=== PATIENT | male | born 1955 | race Caucasian/White ===

== ENCOUNTER 2024-09-17 19:11 | Emergency (ER) | payer MEDICARE, OTHER, SELFPAY ==
[2024-09-17 19:13] VITALS: BP 145/87; PULSE 99; RESP 18; TEMP 36.7; O2SAT 98; BMI 27.8
--- NOTE | 2024-09-17 19:31 | EDS_ITS ---
HPI HPI - GI History of Present Illness Chief Complaint: Foreign Body Informant: patient and spouse/S.O. Narrative Narrative: 69-year-old male presenting to the emergency room with possible esophageal foreign body. Patient states that he does not have any teeth. He was eating a hot dog when he felt the last bite get stuck in his upper chest. Since that time he has been spitting up secretions. This is not happened to him before but notes over the past couple weeks he has had more choking . PFSH PFSH Home Medications ?Medication ?Instructions ?Recorded ?Last Taken ?Type amlodipine 5 mg tablet mg DAILY 09/17/24 Unknown Hi story atorvastatin 40 mg tablet 40 mg PO QHS cholesterol 07/30 Unknown History empagliflozin 10 mg tablet 10 mg PO 09/17/24 Unknown H istory (Jardiance) glimepiride 4 mg tablet 4 mg PO 09/17/24 Unknown His tory lisinopril 20 mg tablet 20 mg PO DAILY 09/17/24 Unkn own History metformin 500 mg tablet 1,000 mg PO BID 09/17/24 Unk nown History sitagliptin phosphate 100 mg mg 09/17/24 Unknown Histo ry tablet (Januvia) tamsulosin 0.4 mg capsule 0.4 mg PO QHS 09/17/24 Unkno wn History Allergy/AdvReac Type Severity Reaction Status Date / Time No Known Allergies Allergy Verified 09/17/24 19:15 Social History Smoking Status: Never smoker ROS ROS ED Constitutional Constitutional ED: Denies chills or weight loss Eyes Eyes: Denies change in vision or diplopia ENT ENT ED: Denies ear pain, rhinorrhea or sore throat Cardiovascular Cardiovascular: Denies chest pain, orthopnea, palpitations or racing heartbeat Respiratory/Chest Respiratory/Chest: Denies cough, dyspnea or orthopnea Gastrointestinal Gastrointestinal: Reports vomiting and other Details: See history of present illness ; Denies abdominal pain, diarrhea or nausea Genitourinary Genitourinary ED: Denies dysuria, hematuria or urinary frequency Musculoskeletal Musculoskeletal: Denies arthralgias or myalgias Integumentary Denies abscess or rash Neurologic Neurologic: Denies headache(s) or weakness Psychiatric Psychiatric: Denies anxiety, depression, suicidal ideation or suicidal thoughts Endocrine Endocrinology: Denies polydipsia, polyphagia or polyuria Allergic/Immunologic Allergic/Immunologic ED: Denies mouth swelling, tongue swelling or urticaria EXAM Physical Exam Const Vital Signs: 09/17/24 19:13 09/17/24 19:28 Temperature 98.0 F Temperature Source Temporal Pulse Rate 99 Respiratory Rate 18 Respiratory Effort Normal Blood Pressure 145/87 H Blood Pressure Mean 106 Pulse Ox 98 Oxygen Delivery Method Room Air Positive well nourished and well developed General Appearance ED: well developed HEENT Reports normocephalic, head/scalp atraumatic and moist mucous membranes Eyes PERRL and EOMs intact bilaterally Neck no lymphadenopathy, supple and no JVD Resp normal respiratory effort and clear to auscultation bilaterally Cardio regular rate, regular rhythm and no murmurs GI normal to inspection, nondistended, normoactive bowel sounds and non-tender Palpation: soft Back/Spine no CVA tenderness and normal ROM Extremity normal to inspection General Extremety ED: Negative for edema General Extremity: Negative for edema Neuro oriented x3 and CN's II-XII intact bilaterally Sensorium / Orientation: alert Motor Exam: strength 5/5 throughout Psych mental status grossly normal Mood & Affect: Negative for depressed or tearful Skin no rashes or lesions noted and no wounds MDM MDM MDM Narrative Medical decision making narrative: Differential diagnosis includes but not limited to esophageal foreign body esophageal abrasion pharyngeal abrasion pharyngeal/laryngeal failure body esophageal stricture GERD Patient was given a Coke to drink. After several episodes of spitting up he was able to swallow it and now feels asymptomatic. Patient will be discharged home. Instructions to chew food well. Should he have recurrent symptoms recommend a formal EGD. He will be given a referral. History & Record Review Discussion w/independent historian: Patient and Significant other Discharge Plan Triage Chief Complaint: Foreign Body ED Provider: Nicolas Atkinson Dx/Rx/DC Orders Clinical Impression: Esophageal foreign body Instructions: ED Esophageal Foreign Body, Resolved Prescriptions: No Action atorvastatin 40 mg tablet 40 mg PO QHS metformin 500 mg tablet 1,000 mg PO BID lisinopril 20 mg tablet 20 mg PO DAILY amlodipine 5 mg tablet DAILY tamsulosin 0.4 mg capsule 0.4 mg PO QHS glimepiride 4 mg tablet 4 mg PO Januvia 100 mg tablet Patient Comments: [NO ORIGINAL SIG] Jardiance 10 mg tablet 10 mg PO Primary Care Provider: NOT,DEFINED Referrals: Wojciech Strong, DO [Med Staff - Active Staff] - As Needed (If you need to have a EGD performed) NOT,DEFINED [Primary Care Provider] - Activity Restrictions/Additional Instructions: If symptoms become recurrent you may wish to have a formal EGD performed to evaluate your esophagus. You may call the doctor listed here. Print Language: Irish Disposition Disposition: Home, Self Care
[2024-09-17 20:04] VITALS: BP 109/70; PULSE 96; RESP 16; TEMP 36.6; O2SAT 100
== END 2024-09-17 20:13 | disposition home or self-care (01) ==
LOC: ED 20:07
PROVIDERS: Emergency Provider Emergency Medicine; PCP Family Medicine; Referring Provider Emergency Medicine; Visit Provider Emergency Medicine
DX: T18.128A Food in esophagus causing other injury, initial encounter (principal); Z79.899 Other long term (current) drug therapy; Z79.84 Long term (current) use of oral hypoglycemic drugs; W44.F3XA Food entering into or through a natural orifice, initial encounter
CPT/HCPCS: 99282